=== PATIENT | male | born 1960 ===

== ENCOUNTER 2017-02-05 23:41 | Emergency (ER) | payer OTHER ==
[2017-02-05 23:50] VITALS: BMI 34.2
[2017-02-05 23:54] VITALS: BP 136/87; PULSE 90; RESP 18; TEMP 99.3; O2SAT 96
--- NOTE | 2017-02-06 00:29 | ED PDOC ---
Arrival/HPI - General Chief Complaint: Male Genitourinary Time Seen by Provider: 02/05/17 23:59 Historian: Patient - History of Present Illness Narrative History of Present Illness (Text): 02/06/17 00:25 Migel Lowe is a 56 year old male, whose past medical history includes hypertension, diabetes, and lap band surgery, who presents to the Emergency department complaining of redness to the left testicle with some swelling today. Patient denies any fever, chills, chest pain, shortness of breath, nausea , vomiting, diarrhea, urinary symptoms, back pain, neck pain, headache, dizziness, or any other complaints. Symptom Onset: Gradual Symptom Course: Unchanged Activities at Onset: Rest, Light Context: Home Past Medical History - Provider Review Nursing Documentation Reviewed: Yes - Infectious Disease Hx of Infectious Diseases: None - Cardiac Hx Hypertension: Yes Hx Pacemaker: No - Endocrine/Metabolic Hx Diabetes Mellitus Type 2: Yes - Hematological/Oncological Hx Blood Transfusions: No - Musculoskeletal/Rheumatological Hx Musculoskeletal Disorders: No - Psychiatric Hx Emotional Abuse: No Hx Physical Abuse: No Hx Substance Use: No - Surgical History Other/Comment: lap band - Anesthesia Hx Anesthesia Reactions: Yes Hx Malignant Hyperthermia: No - Suicidal Assessment Feels Threatened In Home Enviroment: No Family/Social History - Physician Review Nursing Documentation Reviewed: Yes Family/Social History: No Known Family HX Smoking Status: Never Smoked Hx Alcohol Use: No Hx Substance Use: No Allergies/Home Meds Allergies/Adverse Reactions: Allergies No Known Allergies Allergy (Verified 12/23/14 07:13) Home Medications: Home Meds Medication Instructions Recorded Confirmed Glimepiride [amaRYL] 4 mg PO BID 12/23/14 12/23/14 Lisinopril [Lisinopril] 10 mg PO DAILY 12/23/14 12/23/14 Metformin Hydrochloride/Aida 1 tab PO BID 12/23/14 12/23/14 [Janumet 500 mg-50 mg] Metoprolol Tartrate [Lopressor] 12.5 mg PO DAILY 12/23/14 12/23/14 Review of Systems - Physician Review All systems were reviewed & negative as marked: Yes - Review of Systems Constitutional: Normal. absent: Fevers Eyes: Normal ENT: Normal Respiratory: Normal. absent: SOB, Cough Cardiovascular: Normal. absent: Chest Pain Gastrointestinal: Normal. absent: Abdominal Pain, Diarrhea, Nausea, Vomiting Genitourinary Male: Other (+left testicle redness) Musculoskeletal: Normal. absent: Back Pain, Neck Pain Skin: Normal. absent: Rash Neurological: Normal. absent: Headache, Dizziness Endocrine: Normal Hemo/Lymphatic: Normal Psychiatric: Normal Physical Exam Vital Signs Reviewed: Yes Vital Signs Temp Pulse Resp BP Pulse Ox 02/05/17 23:53 99.3 F 90 18 136/87 96 Temperature: Afebrile Blood Pressure: Normal Pulse: Regular Respiratory Rate: Normal Appearance: Positive for: Well-Appearing, Non-Toxic, Comfortable Pain Distress: None Mental Status: Positive for: Alert and Oriented X 3 - Systems Exam Head: Present: Atraumatic, Normocephalic Pupils: Present: PERRL Extroacular Muscles: Present: EOMI Conjunctiva: Present: Normal Mouth: Present: Moist Mucous Membranes Neck: Present: Normal Range of Motion Respiratory/Chest: Present: Clear to Auscultation, Good Air Exchange. No: Respiratory Distress, Accessory Muscle Use Cardiovascular: Present: Regular Rate and Rhythm, Normal S1, S2. No: Murmurs Abdomen: Present: Normal Bowel Sounds. No: Tenderness, Distention, Peritoneal Signs Genitourinary Male: Present: Erythema (Left testicular erythema with some swelling), Other (No evidence of Maria Guadalupe's gangrene) Neurological: Present: GCS=15, CN II-XII Intact, Speech Normal Skin: Present: Warm, Dry, Normal Color. No: Rashes Psychiatric: Present: Alert, Oriented x 3, Normal Insight, Normal Concentration Medical Decision Making ED Course and Treatment: 02/06/17 00:25 Impression: 56 year old male complaining of left testicular redness with some swelling. Plan: -- Bactrim -- Keflex -- Lyrica -- Reassess and disposition Progress Notes: 02/06/17 03:23 On re-evaluation, the patient feels better and is in no acute distress. I have discussed the results and plan with the patient, who expresses understanding. Patient in agreement with plan to discharged home. Patient is stable for discharge. Patient was instructed to follow up with physician/clinic in 1-2 days or return if symptoms worsen or new concerning symptoms arise. - Medication Orders Current Medication Orders: Discontinued Medications Cephalexin Monohydrate (Keflex) 500 mg PO STAT STA PRN Reason: Protocol Stop: 02/06/17 00:31 Last Admin: 02/06/17 00:47 Dose: 500 mg Pregabalin (Lyrica) 100 mg PO BID SALLY Last Admin: 02/06/17 00:48 Dose: 100 mg Trimethoprim/Sulfamethoxazole (Bactrim Ds Tab) 1 tab PO ONCE ONE PRN Reason: Protocol Stop: 02/06/17 00:31 Last Admin: 02/06/17 00:47 Dose: 1 tab - Scribe Statement The provider has reviewed the documentation as recorded by the Griceldaibchicho Rodarte All medical record entries made by the Griceldaibchicho were at my direction and personally dictated by me. I have reviewed the chart and agree that the record accurately reflects my personal performance of the history, physical exam, medical decision making, and the department course for this patient. I have also personally directed, reviewed, and agree with the discharge instructions and disposition. Disposition/Present on Arrival - Present on Arrival Any Indicators Present on Arrival: No History of DVT/PE: No History of Uncontrolled Diabetes: No Urinary Catheter: No History of Decub. Ulcer: No History Surgical Site Infection Following: None - Disposition Have Diagnosis and Disposition been Completed?: Yes Diagnosis: Abscess of scrotal wall Disposition: HOME/ ROUTINE Disposition Time: 03:23 Condition: GOOD Discharge Instructions (ExitCare): Abscess (ED) Prescriptions: Sulfamethoxazole/Trimethoprim [Bactrim DS 800 mg-160 mg] 1 tab PO BID #14 tab Cephalexin [Keflex] 500 mg PO BID #14 capsule Referrals: Serafin Boone MD [Primary Care Provider] - Follow up with primary Forms: WORK NOTE
[2017-02-06] MEDS ORDERED: Tmp-Smz 800 mg-160 mg DS Tab PO ONE (00:30)
== END 2017-02-06 03:00 | disposition home or self-care (01) ==
LOC: ED 23:41
DX: N49.2 Inflammatory disorders of scrotum (principal)